=== PATIENT | female | born 1980 | race Caucasian/White ===

== ENCOUNTER 2016-06-23 19:19 | Inpatient (IN) | payer OTHER ==
--- NOTE | ~2016-06-23 | A ---
[facility] Nutrition Therapy DATE: 06/25/16 Patient: ANGELES MOLINA Physician: ADDISON Address: [address] Room/Bed: [address], Zip: [place] [address] Admit Date: 06/23/16 Date of : [birth year] Height: 5 3 Weight: [phone] NUTRITIONAL ASSESSMENT: REASON: CONSULT "LAP BAND" PATIENT ADMITTED FOR DEPRESSION, ANXIETY, AND SI PMH: HLD, HTN, HYPOGLYCEMIA Anthropometrics: HT: 5'3", WT: 130#, BMI: 23, %IBW: 113 Labs: 06/22/16- NUTRITION LABS WNL Meds: SEROQUEL, GLUCOPHAGE, VIT D, PROTONIX, PROZAC, VALIUM Assessment: PATIENT IS A 36 Y/O FEMALE ADMITTED FOR SI, DEPRESSION, AND ANXIETY. PATIENT LIVES WITH HER AND CHILDREN, HER TOX SCREEN WAS POSITIVE FOR MARIJUANA AND BENZODIAZEPINES, AND IT IS SUSPECTED THAT PATIENT HAS BEEN NON-COMPLIANT WITH HER MEDICATIONS. NURSING REPORTS GOOD PO INTAKES. UPON VISIT FROM RD, PATIENT WAS VERY LETHARGIC. PATIENT STATED SHE HAS HAD HER LAP BAND FOR 7 YEARS. SHE HAS SOME GERD, BUT NO COMPLICATIONS FROM HER SURGERY, AND NO C/O N/V. HER BMI IS WITHIN A HEALTHY RANGE, SHE IS 113% OF HER IBW, AND SHE HAS HAD A STABLE WEIGHT. PATIENT IS ON A REGULAR DIET. THERE ARE NO SKIN OR GI ISSUES ATT. Dx: NO NUTRITION DX Intervention: REGULAR DIET, MEDS PER MD, PSYCH Monitoring, Evaluation and Goals: 1. ADEQUATE PO INTAKES >50% OF MEALS 2. PREVENT, CORRECT MICRO/MACRO NUTRIENT DEFICIENCIES MONITOR: WEIGHTS, LABS, PO/FLUID INTAKES Recommendations: 1. CONTINUE REGULAR DIET TOLERATED 2. ENCOURAGE ADEQUATE PO AND FLUID INTAKES 3. CONSULT RD WITH ANY FURTHER NUTRITION QUESTIONS OR CONCERNS. RD TO F/U PER PROTOCOL AND PRN R/T PATIENT NOT AT NUTRITIONAL RISK ATT [facility] Nutrition Therapy DATE: 06/25/16 Patient: ANGELES MOLINA Physician: ADDISON Address: [address] [facility] Room/Bed: [address], Zip: [place] [address] Admit Date: 06/23/16 Date of : [birth year] Height: 5 3 Weight: [phone] Respectfully, ADRIANA SANCHEZ RD, LD [facility] cc: client file
--- NOTE | ~2016-06-23 | DS ---
Unit #: [id number] #: [id number] Patient: [facility]GELES [facility]OLINA [id number] [facility] [address] [place] [address] [id number] I MR#: [id number] NAME: ANGELES MOLINA ROOM: [facility] Age: 36 Sex: F Admission Date: 06/23/2016 : 1980 Discharge Date: 06/27/2016 Attending Physician: Benton Lyles M.D. Primary Care Physician: Generic Doctor Not In System DISCHARGE SUMMARY IDENTIFYING DATA Ms. Molina is a 36-year-old, white female with mood disorder who was self-referred to the hospital. DISCHARGE DIAGNOSES Psychiatric: Major depressive disorder, recurrent, moderate, without psychotic features. Medical: Hypertension . HISTORY OF PRESENT ILLNESS Please see initial psychiatric evaluation for details. PAST PSYCHIATRIC HISTORY Please see initial psychiatric evaluation for details. PAST MEDICAL HISTORY Please see initial psychiatric evaluation for details. HOSPITAL COURSE The patient was admitted to the adult psychotic unit at [facility] rosalva [place] and was oriented to the hospital environment. Routine p.r.n. medications were initiated, and she was started back on her home medications and Wellbutrin maintained as an antidepressant and Seroquel was added as a mood stabilizer and augmenting agent; however, she was seen to be showing poor insight into her situation decided that she will be discharged home and will continue treatment on an outpatient basis. DISCHARGE CONDITION Stable. PROGNOSIS Guarded. Dictated by... Alley Wiseman/marlon TD: 07/23/2016 13:18 JOB #: [id number] Unit #: [id number] #: [id number] Patient: ANGELES MOLINA DISCHARGE SUMMARY Page 1 of 1 X Benton Lyles MD X DISCHARGE SUMMARY
--- NOTE | ~2016-06-23 | PN ---
Unit #: [id number] #: [id number] Patient: ANGELES MOLINA [id number] [facility] [address] [place] [address] [id number] MR#: [id number] NAME: ANGELES MOLINA ROOM: P254 Age: 36 Sex: F Admission Date: 06/23/2016 : 1980 Attending Physician: Benton Lyles M.D. Admitting Physician: Benton Lyles M.D. Primary Care Physician: Generic Doctor Not In System [facility] PROGRESS NOTES DATE June 26, 2016 DISCUSSION Ms. Molina is a 36-year-old white female, who was seen today and chart was reviewed and the case was discussed with the staff. The patient has been anxious, withdrawn, and rather seclusive to herself. Meanwhile, she has been cooperative with the treatment recommendations and she has been taking the medications and tolerating them fairly well with no reported side effects. MENTAL STATUS EXAMINATION Young white female, who was casually dressed with fair personal hygiene and appears to be in no acute distress or discomfort. She was awake and alert on interaction with intact orientation. Her mood was anxious with a congruent affect. The patient denies any suicidal or homicidal ideations. Her insight and judgment remain slightly impaired. TREATMENT PLAN 1. We will continue her on her current medications and treatment protocol, and will monitor her response to the medications, and make further adjustments as needed. 2. We will continue to followup. Dictated by... Alley Wiseman/zachery TD: 06/26/2016 11:47 JOB #: [id number] Unit #: [id number] #: [id number] Patient: ANGELES MOLINA PROGRESS NOTES Page 1 of 1 X Benton Lyles MD PROGRESS NOTE
--- NOTE | ~2016-06-23 | HP ---
Unit #: [id number] #: [id number] Patient: ANGELES MOLINA [id number] [place] [address] [id number] I MR#: [id number] NAME: ANGELES MOLINA ROOM: P254 Age: 36 Sex: F Admission Date: 06/23/2016 : 1980 Attending Physician: Benton Lyles M.D. Admitting Physician: Benton Lyles M.D. Primary Care Physician: Generic Doctor Not In System HISTORY AND PHYSICAL HISTORY OF PRESENT ILLNESS Angeles is a 36 year old admitted to [address] [place] [address] with depression and verbalizing wanting to hurt herself. PAST MEDICAL HISTORY 1. Hyperlipidemia. 2. High blood pressure. PAST SURGICAL HISTORY 1. Lap-band 2. Cholecystectomy ALLERGIES Shell fish SOCIAL HISTORY She does not smoke. Drinks alcohol on occasion. Denies illicit drug use. FAMILY HISTORY Medically noncontributory. She lives with her lesbian partner and her four children. REVIEW OF SYSTEMS CONSTITUTIONAL: No fever or chills. HEENT: Denies any sore throat, ear pain or runny nose. CARDIOVASCULAR: Denies chest pain, irregular heart rhythm or palpitations. CHEST: Denies shortness of breath or cough. No hemoptysis. GASTROINTESTINAL: Denies nausea, vomiting, diarrhea or chronic constipation. ENDOCRINE: Denies history of increased thirst or urination. No recent significant weight loss or gain. GENITOURINARY: Denies dysuria, frequency, or hematuria. SKIN: Denies any rashes. HEMATOLOGIC: Denies history of increased bleeding or bruising. MUSCULOSKELETAL: Denies any hot, swollen joints. No generalized muscle pain. NEUROLOGIC: Denies problems with vision or speech. No frequent, severe headaches. No numbness, tingling or weakness in any extremities. Denies loss of bladder or bowel control. CURRENT MEDICATIONS No orders received at the time of this dictation. Unit #: [id number] #: [id number] Patient: ANGELES MOLINA PHYSICAL EXAMINATION GENERAL: Alert, well-nourished, in no apparent distress. VITAL SIGNS: Blood pressure 106/66, heart rate 88, respirations 16, temperature 98.6. SKIN: Warm and dry without rash or lesion. HEENT: Normocephalic. TMs not viewed. Oral and nasal passages clear. Conjunctivae clear. Pupils equal, round and reactive to light and accommodation. Extraocular movements intact. NECK: Supple without lymphadenopathy or thyromegaly. HEART: Regular rate and rhythm without murmur. LUNGS: Clear. ABDOMEN: Soft, nontender. : Not done. EXTREMITIES: No evidence of cyanosis, clubbing or edema. Moves all extremities without focal deficit. NEUROLOGICAL: Grossly within normal limits. Cranial Nerves: II: Visual sinclair are intact. III, IV AND : Extraocular movements are intact. Pupils are equal, round and reactive to light. V: Facial sensation is grossly normal. VII: Facial movements and expression are normal. VIII: Auditory acuity grossly intact. IX, X: Uvula is midline. Phonation is normal. XI: Patient shrugs shoulders and turns head normally. XII: Tongue protrudes in the midline. Sensory and Motor Function: Sensory and motor sensation is grossly normal. Motor: moves all extremities well. Coordination: Gait is normal. Deep Tendon Reflexes: Intact. IMPRESSION Psychiatric admission RECOMMENDATIONS PSYCHIATRIC: Per psychiatrist. MEDICAL: I see no contraindications to participating in facility's activities. MEDICAL PROGNOSIS Good. MEDICAL CONDITION Stable. Dictated by... Duke GarciaALuca-Ryan. for Alley Correa/ceirra TD: 06/24/2016 03:05 JOB #: [id number] Unit #: [id number] #: [id number] Patient: ANGELES MOLINA HISTORY AND PHYSICAL Page 1 of 1 X Savannah Lawson X HISTORY AND PHYSICAL
--- NOTE | ~2016-06-23 | PN ---
Unit #: [id number] #: [id number] Patient: ANGELES MOLINA [id number] [facility] [address] [place] [address] [id number] I MR#: [id number] NAME: ANGELES MOLINA ROOM: [facility] Age: 36 Sex: F Admission Date: 06/23/2016 : 1980 Attending Physician: Benton Lyles M.D. Admitting Physician: Benton Lyles M.D. Primary Care Physician: Generic Doctor Not In System [facility] PROGRESS NOTES DATE June 25, 2016 DISCUSSION Ms. Molina is a 36-year-old white female, with mood disorder, who was seen today and chart was reviewed and the case was discussed with the staff. She has been anxious, withdrawn, and rather seclusive to herself. Meanwhile, she has been cooperative with the treatment recommendations and she has been taking the medications and tolerating them fairly well with no reported side effects. MENTAL STATUS EXAMINATION Young white female, who was casually dressed with fair personal hygiene and appears to be in no acute distress or discomfort. The patient was awake and alert on interaction with intact orientation. Her mood was anxious with a congruent affect. The patient denies any suicidal or homicidal ideations, and also denies any auditory or visual hallucinations. Her insight and judgment remain slightly impaired. TREATMENT PLAN 1. We will continue her on her current medications and treatment protocol, and will monitor her response to the medications, and make further adjustments as needed. 2. We will continue to followup. Dictated by... Alley Wiseman/zachery TD: 06/25/2016 08:30 JOB #: [id number] Unit #: [id number] #: [id number] Patient: ANGELES MOLINA PROGRESS NOTES Page 1 of 1 X Benton Lyles MD PROGRESS NOTE
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
== END 2016-06-27 09:30 | disposition home or self-care (01) | DRG 885 ==
LOC: P2L 19:19
DX: F33.1 Major depressive disorder, recurrent, moderate (principal); R45.851 Suicidal ideations; I10 Essential (primary) hypertension; G43.909 Migraine, unspecified, not intractable, without status migrainosus; Z90.49 Acquired absence of other specified parts of digestive tract; E78.5 Hyperlipidemia, unspecified; Z91.018 Allergy to other foods